=== PATIENT | male | born 1965 | race American Indian/Alaskan Native ===

== ENCOUNTER 2018-10-24 10:53 | Emergency (ER) | payer MEDICAID ==
[2018-10-24 10:59] VITALS: BP 115/83
--- NOTE | 2018-10-24 11:54 | Emergency Department Report ---
ED General Adult HPI - General Chief complaint: Extremity Injury, Upper Stated complaint: LT ARM NUMBNESS Time Seen by Provider: 10/24/18 11:43 Source: patient Mode of arrival: Ambulatory Limitations: No Limitations - History of Present Illness Initial comments: She has a 53-year-old -Mac[place] male who lives in [facility] that comes to the [facility] via EMS with complaints of "right" arm numbness for 1 month. v upon HPI patient told me that he is coming to the ER for left arm numbness and tingling. He also states that he is experiencing some numbness in his left leg. Patient is well dressed, And ambulatory in [facility]. Patient has no focal neuro deficit. He has not having trouble finding words. Short and long- term memory is intact. Vital signs are stable. Blood pressure is 115/83. Past medical history positive for HIV. He follows with Dr. Eldridge who last checked his viral load in November 2017. He is on Truvada and another antiviral that he cannot remember the name of. Patient denies any previous surgeries. He endorses cigarettes alcohol and marijuana. Mother of a stroke. Father of unknown reason patient states that he was in half-way when the father passed so he doesn't know the cause. Patient denies cardiac history, hypertension, hyperlipidemia, previous stroke, previous heart attack. -: Gradual, week(s) - Related Data Allergies Allergy/AdvReac Type Severity Reaction Status Date / Time No Known Allergies Allergy Unverified 10/24/18 10:54 ED Review of Systems ROS: Stated complaint: LT ARM NUMBNESS Other details as noted in HPI Comment: All other systems reviewed and negative ED Past Medical Hx - Past Medical History Hx HIV: Yes - Surgical History Past Surgical History?: No - Family History Family history: other (mom dec cva; dad dec? cause (pt was in longterm when his dad )) - Social History Smoking Status: Current Every Day Smoker Substance Use Type: None, Alcohol, Marijuana ED Physical Exam - General Limitations: No Limitations General appearance: alert, in no apparent distress - Head Head exam: Present: atraumatic, normocephalic - Eye Eye exam: Present: normal appearance, PERRL, EOMI. Absent: scleral icterus, conjunctival injection, nystagmus, periorbital swelling, periorbital tenderness - ENT ENT exam: Present: mucous membranes moist - Neck Neck exam: Present: normal inspection, full ROM. Absent: tenderness - Respiratory Respiratory exam: Present: normal lung sounds bilaterally - Cardiovascular Cardiovascular Exam: Present: regular rate - GI/Abdominal GI/Abdominal exam: Present: soft, normal bowel sounds - Rectal Rectal exam: Present: deferred - exam: Present: normal inspection - Extremities Exam Extremities exam: Present: normal inspection, full ROM, normal capillary refill. Absent: tenderness, pedal edema, joint swelling, calf tenderness - Back Exam Back exam: Present: normal inspection, full ROM - Neurological Exam Neurological exam: Present: alert, oriented X3, CN II-XII intact, normal gait, reflexes normal - Psychiatric Psychiatric exam: Present: normal affect, normal mood - Skin Skin exam: Present: warm, dry, intact, normal color. Absent: rash ED Course Vital Signs 10/24/18 10:58 Temperature 98 F Pulse Rate 84 Respiratory 16 Rate Blood Pressure 115/83 O2 Sat by Pulse 98 Oximetry ED Medical Decision Making - Medical Decision Making Patient is neurologically intact. Patient is ambulatory. He has no weakness on either side. He has no pronator drift. He is ambulatory. Cranial nerves are intact. There is no ptosis. Tongue is midline. He has no trouble finding words or identify objects. He has equal strength upper and lower bilaterally. Vital signs are stable. His blood pressure is 115/83 on no antihypertensives. He is not obese. He has no hypertension or hyperlipidemia history. He's had no previous cardiac or neurological disease. Pt is compliant with his HIV meds. Dr Eldridge is ID Referral today to PCP Discussed with the pt the need for him to have a pcp to follow him over time. Vital Signs 10/24/18 10:58 Temperature 98 F Pulse Rate 84 Respiratory 16 Rate Blood Pressure 115/83 O2 Sat by Pulse 98 Oximetry Critical care attestation.: If time is entered above; I have spent that time in minutes in the direct care of this critically ill patient, excluding procedure time. ED Disposition Clinical Impression: Arm paresthesia, left, HIV (human immunodeficiency virus infection) Disposition: DC-01 TO HOME OR SELFCARE Is pt being admited?: No Does the pt Need Aspirin: No Condition: Stable Additional Instructions: DIET TOLERATED HYDRATE WELL WITH WATER AVOID ALCOHOL OR MARIJUANA AVOID CIG. SMOKING CONTINUE YOUR HOME MEDS FOLLOW UP WITH YOUR HIV MD NAKUL FOR RECHECK FOR IT HAS BEEN ONE YEAR. FOLLOW UP WITH PCP REFERRAL BELOW IF YOU LIVE IN [facility] THE [facility] DOES HAVE PCP DOCTORS OVER THE COUNTER MOTRIN OR TYLENOL FOR PAIN Referrals: [facility] [Outside] - 3-5 Days Time of Disposition: 11:52
== END 2018-10-24 12:29 | disposition home or self-care (01) ==
LOC: ED 10:53
DX: R20.2 Paresthesia of skin (principal); R20.0 Anesthesia of skin; B20 Human immunodeficiency virus [HIV] disease; F17.200 Nicotine dependence, unspecified, uncomplicated; F12.10 Cannabis abuse, uncomplicated

== ENCOUNTER 2018-12-31 11:55 | Emergency (ER) | payer MEDICAID ==
--- NOTE | 2018-12-31 12:11 | Emergency Department Report ---
Blank Doc - Documentation Documentation: This is a 53-year-old male that presents with left leg pain. Denies any injur ies. This initial assessment/diagnostic orders/clinical plan/treatment(s) is/are subject to change based on patient's health status, clinical progression and re- assessment by fellow clinical providers in the ED. Further treatment and workup at subsequent clinical providers discretion. Patient/guardians urged not to elope from the ED as their condition may be serious if not clinically assessed a nd managed. Initial orders include: 1- Patient sent to [facility] for further evaluation and treatment 2- Doppler US
[2018-12-31 12:12] VITALS: BP 123/88
--- NOTE | 2018-12-31 13:35 | Vascular Lab Report ---
PROCEDURE: VL VENOUS DUPLEX LE LT TECHNIQUE: Austin scale, color and pulsed Doppler ultrasound with color flow and spectral analysis eval uation of left lower extremity was performed to assess for deep vein thrombosis. HISTORY: left leg pain COMPARISONS: None currently available. FINDINGS: LEFT extremity: There is normal grayscale appearance and compressibility. Normal phasic pulsed Doppler and normal col or Doppler flow are visualized. The interrogated vessels show normal augmentation. IMPRESSION: * No evidence for DVT. This document is electronically signed by Hasmukh Thompson MD., December 31 2018 01:32:46 PM ET
--- NOTE | 2018-12-31 16:18 | Emergency Department Report ---
ED Extremity Problem HPI - General Chief complaint: Extremity Problem,Nontraumatic Stated complaint: L LEG PAIN Time Seen by Provider: 12/31/18 12:10 Source: patient Mode of arrival: Ambulatory Limitations: No Limitations - History of Present Illness Initial comments: 83-year-old male presents to the emergency room for left leg pain times one month. Patient was seen by Dr. Ceballos and was given a prescription for meloxicam for primary care provider. Patient has a past medical history of HIV. Patient denies any trauma no falls. MD Complaint: extremity pain - Related Data Previous Rx's Medication Instructions Recorded Last Taken Type Meloxicam [Mobic] 15 mg PO QDAY PRN #30 tablet 12/31/18 Unknown Rx Allergies Allergy/AdvReac Type Severity Reaction Status Date / Time No Known Allergies Allergy Unverified 10/24/18 10:54 ED Review of Systems ROS: Stated complaint: L LEG PAIN Other details as noted in HPI Comment: All other systems reviewed and negative ED Past Medical Hx - Past Medical History Previous Medical History?: Yes Hx HIV: Yes - Surgical History Past Surgical History?: No - Social History Smoking Status: Current Every Day Smoker Substance Use Type: None - Medications Home Medications: Home Medications Medication Instructions Recorded Confirmed Last Taken Type Meloxicam [Mobic] 15 mg PO QDAY PRN #30 tablet 12/31/18 Unknown Rx ED Physical Exam - General Limitations: No Limitations General appearance: alert, in no apparent distress - Head Head exam: Present: atraumatic, normocephalic - Eye Eye exam: Present: normal appearance - ENT ENT exam: Present: mucous membranes moist - Expanded Lower Extremity Exam Left Upper Leg exam: Present: full ROM Knee exam: Present: normal inspection, full ROM. Absent: tenderness, swelling Lower Leg exam: Present: full ROM. Absent: tenderness, swelling Neuro vascular tendon exam: Present: no vascular compromise Gait: Positive: observed and normal - Back Exam Back exam: Present: normal inspection - Neurological Exam Neurological exam: Present: alert, oriented X3 - Psychiatric Psychiatric exam: Present: normal affect, normal mood - Skin Skin exam: Present: warm, dry, intact, normal color. Absent: rash ED Course Vital Signs 12/31/18 12:10 Temperature 98.2 F Pulse Rate 75 Respiratory 18 Rate Blood Pressure 123/88 O2 Sat by Pulse 99 Oximetry ED Medical Decision Making - Radiology Data Radiology results: report reviewed Patient: CHUN BRUNO MR#: [id number] : 1965 Acct:[id number] Age/Sex: 53 / M ADM Date: 12/31/18 Loc: ED Attending Dr: Ordering Physician: SEGUNDO CELAYA NP Date of Service: 12/31/18 Procedure(s): VL venous duplex LE LT Accession Number(s): [id number] cc: SEGUNDO CELAYA NP PROCEDURE: VL VENOUS DUPLEX LE LT TECHNIQUE: Austin scale, color and pulsed Doppler ultrasound with color flow and spectral analysis evaluation of left lower extremity was performed to assess for deep vein thrombosis. HISTORY: left leg pain COMPARISONS: None currently available. FINDINGS: LEFT extremity: There is normal grayscale appearance and compressibility. Normal phasic pulsed Doppler and normal color Doppler flow are visualized. The interrogated vessels show normal augmentation. IMPRESSION: * No evidence for DVT. This document is electronically signed by Hasmukh Hardin MD., December 31 2018 01:32:46 PM ET Transcribed By: TYM Dictated By: HASMUKH HARDIN MD Electronically Authenticated By: HASMUKH HARDIN MD Signed Date/Time: 12/31/18 1335 DD/ 1303 TD/TT: 12/31/18 1304 - Medical Decision Making 53-year-old male comes in for 1 month of left leg pain with no injury. Discu ssed the patient will refill his meloxicam and I will not be able to write for narcotics. Discussed the patient he needs to follow back up with his primary care provider which is Dr. Werner. Patient was walking without cane to the bathroom. Critical care attestation.: If time is entered above; I have spent that time in minutes in the direct care of this critically ill patient, excluding procedure time. ED Disposition Clinical Impression: Leg pain, left Disposition: DC-01 TO HOME OR SELFCARE Is pt being admited?: No Does the pt Need Aspirin: No Condition: Stable Instructions: Arthralgia (ED) Additional Instructions: Take pain medication as prescribed. Follow back up with her primary care provider in the next 2-3 days if symptoms persist or gets worse. Ultrasound of her leg was negative for any DVTs or deep vein thrombosis. Prescriptions: Meloxicam [Mobic] 15 mg PO QDAY PRN #30 tablet PRN Reason: Pain , Severe (7-10) Referrals: BETTIE ACKERMAN MD [Staff Physician] - 3-5 Days
== END 2018-12-31 16:26 | disposition home or self-care (01) ==
LOC: ED 11:55
DX: M79.605 Pain in left leg (principal); Z21 Asymptomatic human immunodeficiency virus [HIV] infection status; F17.200 Nicotine dependence, unspecified, uncomplicated

== ENCOUNTER 2019-01-13 10:57 | Emergency (ER) | payer MEDICAID ==
[2019-01-13] MEDS ORDERED: NACL 0.9% 1000 ML 1,000 ML IV ONE (11:32)
[2019-01-13] MEDS ORDERED: ANTIVERT PO ONE (11:32)
--- NOTE | 2019-01-13 11:33 | Emergency Department Report ---
<YVONNE DOMINGO - Last Filed: 01/13/19 15:36> - General Chief complaint: Weakness Stated complaint: GENERAL WEAKNESS Time Seen by Provider: 01/13/19 11:22 Source: patient, EMS, old records reviewed Mode of arrival: Stretcher Limitations: No Limitations - History of Present Illness Initial comments: 53 year old male past medical history of HIV history of alcohol abuse presents to the Hospital complaining of continued left upper leg pain and some dizziness. Patient has had leg pain for greater 1 month of dizziness for a couple days. Patient describes dizziness as the room spinning. Symptoms somewhat worse with movement. Denies blurred vision, nausea, vomiting, focal weakness, focal numbness, or headache. Patient has had a left upper leg thigh/quadrant pain for greater than 1 month. Pain is moderate, sharp, intermittent, worse a palpation and movement. He has been seen here recently for the same complaints. Denies any trauma, rash, or leg edema. Patient has not followed up with his HIV doctor since last year. He just ran out of his HIV medication while month ago. He does not know his last viral load or CD4 count. Patient stop drinking alcohol on his birthday this year. He denies any drug use. - Related Data Previous Rx's Medication Instructions Recorded Last Taken Type Acetaminophen [Acetaminophen 8 650 mg PO Q8HR PRN #20 tablet.er 01/13/19 Unknown Rx Hour] Meclizine [Antivert] 25 mg PO TID PRN #20 tablet 01/13/19 Unknown Rx Nitrofurantoin Parmer/M-Cryst 100 mg PO Q12HR #14 capsule 01/13/19 Unknown Rx [Macrobid CAP] Allergies Allergy/AdvReac Type Severity Reaction Status Date / Time aspirin AdvReac Hives Verified 01/13/19 11:19 diphenhydramine AdvReac Hives Verified 01/13/19 11:19 [From Benadryl] ibuprofen AdvReac Itching Verified 01/13/19 11:19 IVP dye AdvReac Anaphylaxis Uncoded 01/13/19 11:19 ED Review of Systems Comment: All other systems reviewed and negative ED Past Medical Hx - Past Medical History Hx HIV: Yes Additional medical history: Peptic ulcer disease - Social History Smoking Status: Current Every Day Smoker Substance Use Type: None - Medications Home Medications: Home Medications Medication Instructions Recorded Confirmed Last Taken Type Acetaminophen [Acetaminophen 8 650 mg PO Q8HR PRN #20 tablet.er 01/13/19 Unknown Rx Hour] Meclizine [Antivert] 25 mg PO TID PRN #20 tablet 01/13/19 Unknown Rx Nitrofurantoin Parmer/M-Cryst 100 mg PO Q12HR #14 capsule 01/13/19 Unknown Rx [Macrobid CAP] ED Physical Exam - General Limitations: No Limitations - Other Other exam information: General: No limitations, patient is alert in no acute distress Head exam: Atraumatic, normocephalic Eyes exam: Normal appearance, pupils equal reactive to light, extraocular movements intact, patient has nystagmus with right upper directions. ENT: Moist mucous membrane, normal oropharynx Neck exam: Normal inspection, full range of motion, no meningismus nontender Respiratory exam: Clear to auscultation bilateral, no wheezes, rales, crackles Cardiovascular: Normal rate and rhythm, normal heart sounds Abdomen: Soft, nondistended, and nontender, with normal bowel sounds, no rebound, or guarding Extremity: Full range of motion normal inspection no deformity, tenderness to left hamstring and quad area. No rash, warm, or erythema. 2+ DP pulses equal bilaterally. Back: Normal Inspection, full range of motion, no tenderness, [id number] motion intact Neurologic: Alert, oriented x3, cranial nerves intact, no motor or sensory deficit Psychiatric: normal affect, normal mood Skin: Warm, dry, intact ED Medical Decision Making - Lab Data Result diagrams: 01/13/19 11:37 01/13/19 11:37 Lab Results 01/13/19 01/13/19 01/13/19 Range/Units 11:37 11:37 11:37 WBC 4.8 (4.5-11.0) K/mm3 RBC 5.27 H (3.65-5.03) M/mm3 Hgb 16.4 H (11.8-15.2) gm/dl Hct 49.0 H (35.5-45.6) % MCV 93 (84-94) fl MCH 31 (28-32) pg MCHC 33 (32-34) % RDW 13.3 (13.2-15.2) % Plt Count 196 (140-440) K/mm3 Lymph % (Auto) 19.9 (13.4-35.0) % Parmer % (Auto) 13.5 H (0.0-7.3) % Eos % (Auto) 2.5 (0.0-4.3) % Baso % (Auto) 0.4 (0.0-1.8) % Lymph # 1.0 L (1.2-5.4) K/mm3 Parmer # 0.7 (0.0-0.8) K/mm3 Eos # 0.1 (0.0-0.4) K/mm3 Baso # 0.0 (0.0-0.1) K/mm3 Seg Neutrophils % 63.7 (40.0-70.0) % Seg Neutrophils # 3.1 (1.8-7.7) K/mm3 Sodium 136 L (137-145) mmol/L Potassium 4.0 (3.6-5.0) mmol/L Chloride 98.9 (98-107) mmol/L Carbon Dioxide 28 (22-30) mmol/L Anion Gap 13 mmol/L BUN 13 (9-20) mg/dL Creatinine 0.8 (0.8-1.5) mg/dL Estimated GFR > 60 ml/min BUN/Creatinine Ratio 16 % Glucose 140 H (75-100) mg/dL Calcium 8.6 (8.4-10.2) mg/dL Magnesium 2.30 (1.7-2.3) mg/dL Total Bilirubin 0.40 (0.1-1.2) mg/dL AST 21 (5-40) units/L ALT 34 (7-56) units/L Alkaline Phosphatase 57 (35-129) units/L Total Creatine Kinase 70 (55-170) units/L Total Protein 7.9 (6.3-8.2) g/dL Albumin 3.2 L (3.9-5) g/dL Albumin/Globulin Ratio 0.7 % Urine Color (Yellow) Urine Turbidity (Clear) Urine pH (5.0-7.0) Ur Specific [place] (1.003-1.030) Urine Protein (Negative) mg/dL Urine Glucose (UA) (Negative) mg/dL Urine Ketones (Negative) mg/dL Urine Blood (Negative) Urine Nitrite (Negative) Urine Bilirubin (Negative) Urine Urobilinogen (<2.0) mg/dL Ur Leukocyte Esterase (Negative) Urine WBC (Auto) (0.0-6.0) /HPF Urine RBC (Auto) (0.0-6.0) /HPF Urine Bacteria (Auto) (Negative) /HPF Urine Mucus /HPF Urine Yeast (Budding) /HPF Urine Opiates Screen Urine Methadone Screen Ur Barbiturates Screen Ur Phencyclidine Scrn Ur Amphetamines Screen U Benzodiazepines Scrn Urine Cocaine Screen U Marijuana (THC) Screen Drugs of Abuse Note Plasma/Serum Alcohol (0-0.07) % 01/13/19 01/13/19 01/13/19 Range/Units 11:37 Unknown Unknown WBC (4.5-11.0) K/mm3 RBC (3.65-5.03) M/mm3 Hgb (11.8-15.2) gm/dl Hct (35.5-45.6) % MCV (84-94) fl MCH (28-32) pg MCHC (32-34) % RDW (13.2-15.2) % Plt Count (140-440) K/mm3 Lymph % (Auto) (13.4-35.0) % Parmer % (Auto) (0.0-7.3) % Eos % (Auto) (0.0-4.3) % Baso % (Auto) (0.0-1.8) % Lymph # (1.2-5.4) K/mm3 Parmer # (0.0-0.8) K/mm3 Eos # (0.0-0.4) K/mm3 Baso # (0.0-0.1) K/mm3 Seg Neutrophils % (40.0-70.0) % Seg Neutrophils # (1.8-7.7) K/mm3 Sodium (137-145) mmol/L Potassium (3.6-5.0) mmol/L Chloride (98-107) mmol/L Carbon Dioxide (22-30) mmol/L Anion Gap mmol/L BUN (9-20) mg/dL Creatinine (0.8-1.5) mg/dL Estimated GFR ml/min BUN/Creatinine Ratio % Glucose (75-100) mg/dL Calcium (8.4-10.2) mg/dL Magnesium (1.7-2.3) mg/dL Total Bilirubin (0.1-1.2) mg/dL AST (5-40) units/L ALT (7-56) units/L Alkaline Phosphatase (35-129) units/L Total Creatine Kinase (55-170) units/L Total Protein (6.3-8.2) g/dL Albumin (3.9-5) g/dL Albumin/Globulin Ratio % Urine Color Yellow (Yellow) Urine Turbidity Slightly-cloudy (Clear) Urine pH 6.0 (5.0-7.0) Ur Specific [place] 1.004 (1.003-1.030) Urine Protein <15 mg/dl (Negative) mg/dL Urine Glucose (UA) Neg (Negative) mg/dL Urine Ketones Neg (Negative) mg/dL Urine Blood Sm (Negative) Urine Nitrite Neg (Negative) Urine Bilirubin Neg (Negative) Urine Urobilinogen 2.0 (<2.0) mg/dL Ur Leukocyte Esterase Lg (Negative) Urine WBC (Auto) 71.0 H (0.0-6.0) /HPF Urine RBC (Auto) 2.0 (0.0-6.0) /HPF Urine Bacteria (Auto) 4+ (Negative) /HPF Urine Mucus Few /HPF Urine Yeast (Budding) 1+ /HPF Urine Opiates Screen Presumptive negative Urine Methadone Screen Presumptive negative Ur Barbiturates Screen Presumptive negative Ur Phencyclidine Scrn Presumptive negative Ur Amphetamines Screen Presumptive negative U Benzodiazepines Scrn Presumptive negative Urine Cocaine Screen Presumptive positive U Marijuana (THC) Screen Presumptive negative Drugs of Abuse Note Disclamer Plasma/Serum Alcohol < 0.01 (0-0.07) % - EKG Data -: EKG Interpreted by Ak EKG shows normal: sinus rhythm, axis (qrs -26), QRS complexes (qrsd 90), ST-T waves (no stemi) Rate: bradycardia (57) - Medical Decision Making Patient did receive meclizine in the ED for possible vertigo + uti, macrobid given uds + for cocaine no signs of rhabdo or sepsis pt will be d/jeremie wtih meds pmd and ID f/u encouraged just prior to d/c his significant other now at the bedside and states that he has had unsteady gait and frequent falls for last 2 weeks. He also has periods of crossed eyes. Patient had good 5/5 strength of upper and lower extremity while in the bed. CT head performed. Walker will be prescribed. Once again I stressed outpatient follow-up given that he chronic medical conditions that are currently being treated due to his lack of follow-up. Patiently lists almost every pain medication class as an "allergy" He states that he can't take ibuprofen due to history of bleeding stomach ulcer. It appears that most of his allergies listed are actually adverse reactions and not true allergies. He states he can't take tramadol because it tears up his stomach and he gets nausea and vomiting. He can't take aspirin due to peptic ulcer disease. It does not appear to have patient has a Tylenol allergy. Given patient's positive cocaine drug screen and history of alcohol abuse I am hesitant to give a narcotic for pain due to risk of potential abuse especially given that patient's pain appears to be chronic. Tylenol will be recommended for pain. Instructed to discontinue Mobic since it is a NSAID and has sustained risk of GI upset/bleeding and people with a history of peptic ulcer disease. - Differential Diagnosis rhabdomyolysis, muscle strain, myopathy, infection, vertigo Critical Care Time: No ED Disposition Clinical Impression: Leg pain, left, UTI (urinary tract infection), Vertigo Disposition: DC-01 TO HOME OR SELFCARE Is pt being admited?: No Does the pt Need Aspirin: No Condition: Stable Instructions: Urinary Tract Infection in Men (ED), Vertigo (ED), Cocaine Abuse (ED), Arthralgia (ED) Additional Instructions: Take the medication as prescribed. Follow up with your doctor or the clinic/doctor provided. Return if symptoms worsen as indicated by your discharge instructions Prescriptions: Acetaminophen [Acetaminophen 8 Hour] 650 mg PO Q8HR PRN #20 tablet.er PRN Reason: Pain , Severe (7-10) Meclizine [Antivert] 25 mg PO TID PRN #20 tablet PRN Reason: Vertigo Nitrofurantoin Parmer/M-Cryst [Macrobid CAP] 100 mg PO Q12HR #14 capsule Referrals: GABINO DANG MD [Primary Care Provider] - 3-5 Days [facility] [Provider Group] - 3-5 Days Time of Disposition: 14:28 <MICHAEL GHOSH - Last Filed: 01/13/19 17:03> ED Review of Systems ROS: Stated complaint: GENERAL WEAKNESS Other details as noted in HPI ED Course Vital Signs 01/13/19 01/13/19 01/13/19 11:13 11:34 14:03 Temperature 97.6 F 97.6 F Pulse Rate 70 85 76 Respiratory 18 18 18 Rate Blood Pressure 133/85 Blood Pressure 135/85 125/86 [Right] O2 Sat by Pulse 98 96 Oximetry ED Medical Decision Making - Lab Data Result diagrams: 01/13/19 11:37 01/13/19 11:37 - Radiology Data [facility] [address] [place] [address] Cat Scan Report Signed Patient: CHUN BRUNO MR#: [id number] : 1965 Acct:[id number] Age/Sex: 53 / M ADM Date: 01/13/19 Loc: ED Attending Dr: Ordering Physician: YVONNE DOMINGO MD Date of Service: 01/13/19 Procedure(s): CT head/brain wo con Accession Number(s): [id number] cc: YVONNE DOMINGO MD PROCEDURE: CT HEAD/BRAIN WO CON TECHNIQUE: A noncontrast CT of the head was performed. HISTORY: unsteady gait COMPARISON: None FINDINGS: There are multiple hypodensities in the anya which are likely multiple old lacunar infarcts. The largest is left of midline measuring 1 cm. There is no acute intracranial hemorrhage. There is no brain edema, mass effect or midline shift. Ventricular size is appropriate for brain volume. There is no abnormal extra- axial fluid collections. There is no skull fracture seen. The visualized paranasal sinuses are clear. 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 No acute abnormality seen. This document is electronically signed by Rosario Caal MD., January 13 2019 03:54:05 PM ET Transcribed By: EKTA Dictated By: ROSARIO CAAL MD Electronically Authenticated By: ROSARIO CAAL MD Signed Date/Time: 01/13/19 4306 DD/ 150 Critical care attestation.: If time is entered above; I have spent that time in minutes in the direct care of this critically ill patient, excluding procedure time.
[2019-01-13 12:09] LABS: Alanine Aminotransferase 34 units/L (7-56); Albumin 3.2 g/dL (3.9-5); BUN/Creatinine Ratio 16; Blood Urea Nitrogen 13 mg/dL (9-20); Calcium 8.6 mg/dL (8.4-10.2); Hemolysis Index 8
[2019-01-13 12:10] LABS: Basophils % (Auto) 0.4 % (0.0-1.8); Eosinophils # (Auto) 0.1 K/mm3 (0.0-0.4); Eosinophils % (Auto) 2.5 % (0.0-4.3); Hemoglobin 16.4 gm/dl (11.8-15.2); Lymphocytes % (Auto) 19.9 % (13.4-35.0); Mean Corpuscular HGB Conc 33 % (32-34); Mean Corpuscular Volume 93 fl (84-94); Monocytes # (Auto) 0.7 K/mm3 (0.0-0.8); Monocytes % (Auto) 13.5 % (0.0-7.3); Platelet Count 196 K/mm3 (140-440); Red Blood Count 5.27 M/mm3 (3.65-5.03); Red Cell Distribution Width 13.3 % (13.2-15.2)
[2019-01-13 13:34] LABS: Bacteria,Urine 4+ /HPF (Negative); Bilirubin,Urine NEG (Negative); Blood,Urine SM (Negative); Color,Urine Yellow (Yellow); Mucus,Urine FEW /HPF; Protein,Urine <15 mg/dL mg/dL (Negative)
[2019-01-13 13:39] LABS: Amphetamine Screen,Urine PRESUMPTIVE NEGATIVE; Benzodiazepines Screen,Urine PRESUMPTIVE NEGATIVE; Cannabinoid Screen,Urine PRESUMPTIVE NEGATIVE; Methadone Screen,Urine PRESUMPTIVE NEGATIVE; Opiate Screen,Urine PRESUMPTIVE NEGATIVE
[2019-01-13] MEDS ORDERED: MACROBID PO ONE (13:53)
[2019-01-13 14:00] LABS: Cocaine Screen,Urine PRESUMPTIVE POSITIVE
[2019-01-13] MEDS ORDERED: TYLENOL PO ONE (15:36)
--- NOTE | 2019-01-13 15:56 | Cat Scan Report ---
PROCEDURE: CT HEAD/BRAIN WO CON TECHNIQUE: A noncontrast CT of the head was performed. HISTORY: unsteady gait COMPARISON: None FINDINGS: There are multiple hypodensities in the anya which are likely multiple old lacunar infarcts. The larg est is left of midline measuring 1 cm. There is no acute intracranial hemorrhage. There is no brain edema, mass effect or midline shift. Ventricular size is appropriate for brain volume. There is no abnormal extra-axial fluid collections. There is no skull fracture seen. The visualized paranasal sinuses are clear. 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 No acute abnormality seen. This document is electronically signed by Rosario Caal MD., January 13 2019 03:54:05 PM ET
[2019-01-13 17:34] VITALS: BP 135/85
== END 2019-01-13 17:32 | disposition home or self-care (01) ==
LOC: ED 10:57
DX: M79.605 Pain in left leg (principal); R42 Dizziness and giddiness; N39.0 Urinary tract infection, site not specified; F17.200 Nicotine dependence, unspecified, uncomplicated; Z88.6 Allergy status to analgesic agent; Z88.8 Allergy status to other drugs, medicaments and biological substances; Z91.041 Radiographic dye allergy status; Z87.11 Personal history of peptic ulcer disease
CPT/HCPCS: 36415; 70450; 80053; 80307; 81001; 82550; 83735; 85025; 87076; 87086; 87186; 93005; 93010; 96360; 96361; 99284; G0480; J7030; 80320

== ENCOUNTER 2019-07-29 15:09 | Emergency (ER) | payer MEDICAID ==
--- NOTE | 2019-07-29 17:57 | Emergency Department Report ---
Blank Doc - Documentation Documentation: 53-year-old male that presents with difficulty walking and generlized weakness x1 month. This initial assessment/diagnostic orders/clinical plan/treatment(s) is/are subject to change based on patient's health status, clinical progression and re- assessment by fellow clinical providers in the ED. Further treatment and workup at subsequent clinical providers discretion. Patient/guardians urged not to elope from the ED as their condition may be serious if not clinically assessed and managed. Initial orders include: 1- Patient sent to MAIN ED for further evaluation and treatment 2- labs 3- UA 4- CT head
[2019-07-29 18:19] LABS: Eosinophils # (Auto) 0.3 K/mm3 (0.0-0.4); Eosinophils % (Auto) 6.5 % (0.0-4.3); Hematocrit 48.5 % (35.5-45.6); Lymphocytes # (Auto) 2.1 K/mm3 (1.2-5.4); Lymphocytes % (Auto) 44.7 % (13.4-35.0); Mean Corpuscular HGB Conc 33 % (32-34); Mean Corpuscular Volume 91 fl (84-94); Monocytes # (Auto) 0.4 K/mm3 (0.0-0.8); Monocytes % (Auto) 9.5 % (0.0-7.3); Platelet Count 164 K/mm3 (140-440); Red Blood Count 5.31 M/mm3 (3.65-5.03); Red Cell Distribution Width 13.3 % (13.2-15.2)
[2019-07-29 18:41] LABS: Creatine Kinase MB 3.1 ng/mL (0.0-4.0)
[2019-07-29 18:44] LABS: Alanine Aminotransferase 51 units/L (7-56); Albumin 3.7 g/dL (3.9-5); BUN/Creatinine Ratio 19; Blood Urea Nitrogen 13 mg/dL (9-20); Calcium 8.7 mg/dL (8.4-10.2); Hemolysis Index 24
[2019-07-29 19:04] LABS: INR 1.01 (0.87-1.13); Partial Thromboplastin Time 33.7 Sec. (24.2-36.6); Thrombin Time 19.3 Sec. (15.1-19.6)
--- NOTE | 2019-07-29 19:21 | Emergency Department Report ---
ED General Adult HPI - General Chief complaint: Weakness Stated complaint: CANT WALK Time Seen by Provider: 07/29/19 17:55 Source: patient Mode of arrival: Wheelchair Limitations: No Limitations - History of Present Illness Initial comments: 53 y.o. male with a history of HIV and alcohol abuse presents complaining of generalized weakness. Patient states that he has had generalized weakness for the past month. Patient states that he has seen his primary care doctor on July 23 and he ordered outpatient testing for him. Patient has had no focal weakness. Patient's family member states that the patient needs assistance with walking and has been using a cane at home. The patient family states the patient has had more frequent falls. Patient denies any chest pain but complains of pain in his left lower extremity. - Related Data Previous Rx's Medication Instructions Recorded Last Taken Type Acetaminophen [Acetaminophen 8 650 mg PO Q8HR PRN #20 tablet.er 01/13/19 Unknown Rx Hour] Meclizine [Antivert] 25 mg PO TID PRN #20 tablet 01/13/19 Unknown Rx Nitrofurantoin Stearns/M-Cryst 100 mg PO Q12HR #14 capsule 01/13/19 Unknown Rx [Macrobid CAP] Allergies Allergy/AdvReac Type Severity Reaction Status Date / Time aspirin AdvReac Hives Verified 07/29/19 15:16 diphenhydramine AdvReac Hives Verified 07/29/19 15:16 [From Benadryl] ibuprofen AdvReac Itching Verified 07/29/19 15:16 IVP dye AdvReac Anaphylaxis Uncoded 01/13/19 11:19 ED Review of Systems ROS: Stated complaint: CANT WALK Other details as noted in HPI Constitutional: denies: chills, fever Eyes: denies: eye pain, eye discharge, vision change ENT: denies: ear pain, throat pain Respiratory: denies: cough, shortness of breath, wheezing Cardiovascular: denies: chest pain, palpitations Endocrine: no symptoms reported Gastrointestinal: denies: abdominal pain, nausea, diarrhea Genitourinary: denies: urgency, dysuria Musculoskeletal: denies: back pain, joint swelling, arthralgia Skin: denies: rash, lesions Neurological: weakness Psychiatric: denies: anxiety, depression Hematological/Lymphatic: denies: easy bleeding, easy bruising ED Past Medical Hx - Past Medical History Previous Medical History?: Yes Hx HIV: Yes Additional medical history: Peptic ulcer disease - Social History Smoking Status: Current Every Day Smoker Substance Use Type: Alcohol - Medications Home Medications: Home Medications Medication Instructions Recorded Confirmed Last Taken Type Acetaminophen [Acetaminophen 8 650 mg PO Q8HR PRN #20 tablet.er 01/13/19 Unknown Rx Hour] Meclizine [Antivert] 25 mg PO TID PRN #20 tablet 01/13/19 Unknown Rx Nitrofurantoin Stearns/M-Cryst 100 mg PO Q12HR #14 capsule 01/13/19 Unknown Rx [Macrobid CAP] ED Physical Exam - General Limitations: No Limitations General appearance: alert, other (yelling; awake) - Head Head exam: Present: atraumatic, normocephalic - Eye Eye exam: Present: normal appearance - ENT ENT exam: Present: mucous membranes moist - Neck Neck exam: Present: normal inspection - Respiratory Respiratory exam: Present: normal lung sounds bilaterally. Absent: respiratory distress - Cardiovascular Cardiovascular Exam: Present: regular rate, normal rhythm. Absent: systolic murmur, diastolic murmur, rubs, gallop - GI/Abdominal GI/Abdominal exam: Present: soft, normal bowel sounds - Rectal Rectal exam: Present: deferred - Extremities Exam Extremities exam: Present: normal inspection - Back Exam Back exam: Present: normal inspection - Neurological Exam Neurological exam: Present: alert, oriented X3, CN II-XII intact, other (strength 5/5 bilaterally in upper and lower extermities). Absent: motor sensory deficit - Psychiatric Psychiatric exam: Present: normal affect, normal mood - Skin Skin exam: Present: warm, dry, intact, normal color. Absent: rash ED Course Vital Signs 07/29/19 07/29/19 17:55 19:21 Temperature 97.9 F Pulse Rate 68 Respiratory 20 20 Rate Blood Pressure 142/97 O2 Sat by Pulse 98 Oximetry ED Medical Decision Making - Lab Data Result diagrams: 07/29/19 18:03 07/29/19 18:03 - Medical Decision Making Patient has a CT which shows no acute intracranial pathology. Patient able to move extremities. Patient made aware of positive drug screen and need to follow up with primary care doctor later this month at his scheduled appointment. - Differential Diagnosis Dehdyration; Intracranial Bleed; Anemia; Polysubstance Abuse Critical care attestation.: If time is entered above; I have spent that time in minutes in the direct care of this critically ill patient, excluding procedure time. ED Disposition Clinical Impression: Weakness, Cocaine abuse Disposition: DC-01 TO HOME OR SELFCARE Is pt being admited?: No Condition: Stable Instructions: Weakness (ED) Referrals: PRIMARY CARE, [Primary Care Provider] - 3-5 Days Time of Disposition: 20:21 Print Language: NAURUAN
--- NOTE | 2019-07-29 19:33 | Cat Scan Report ---
NONENHANCED CT SCAN OF THE HEAD: INDICATION / CLINICAL INFORMATION: 53 years Male; Stroke symptoms. TECHNIQUE: Routine CT head without contrast. All CT scans at this location are performed using CT dos e reduction for ALARA by means of automated exposure control. COMPARISON: CT scan of the brain from 01/13/2019 FINDINGS: BRAIN / INTRACRANIAL CONTENTS: No intracerebral hemorrhage or stroke mimics. No acute hemorrhage, mass effect, midline shift, hydrocephalus, or acute, large territorial infarct. As seen in the last CT scan, chronic ischemic lesions are seen in the anya bilaterally. Volume loss i s seen in the cerebellar hemispheres. Chronic lacunae are seen in the left thalamus and right interna l capsule posterior limb. These 2 are new since the last CT scan. Periventricular and deep hemispheri c white matter are normal. Focal calcific density is seen in the foramina of [place] without obstruction. This appears to be choro id plexus calcification. CRANIOCERVICAL JUNCTION: No significant abnormality. ORBITS: No significant abnormality of visualized orbits. SINUSES / MASTOIDS: No significant abnormality of the visualized paranasal sinuses or mastoid air hussein ls. ADDITIONAL FINDINGS: The nasal bone fractures are seen bilaterally. IMPRESSION: Intracerebral hemorrhage or stroke mimics As seen in the last CT scan, chronic ischemic lesions in the anya Since the last CT scan, chronic lacunae in the left thalamus and right basal ganglia Signer Name: Vielka Noland MD Signed: 07/29/2019 7:29 PM Workstation Name: [id number]
[2019-07-29] MEDS ORDERED: HYDROcodone/ACETAMINOPHEN 10-325MG TAB PO ONE (19:34)
[2019-07-29 19:41] LABS: Bacteria,Urine 1+ /HPF (Negative); Bilirubin,Urine NEG (Negative); Blood,Urine NEG (Negative); Color,Urine Yellow (Yellow); Mucus,Urine FEW /HPF; Protein,Urine <15 mg/dL mg/dL (Negative)
[2019-07-29 19:45] LABS: Amphetamine Screen,Urine PRESUMPTIVE NEGATIVE; Benzodiazepines Screen,Urine PRESUMPTIVE NEGATIVE; Methadone Screen,Urine PRESUMPTIVE NEGATIVE; Opiate Screen,Urine PRESUMPTIVE NEGATIVE
[2019-07-29 20:00] LABS: Cannabinoid Screen,Urine PRESUMPTIVE POSITIVE; Cocaine Screen,Urine PRESUMPTIVE POSITIVE
[2019-07-29 20:37] VITALS: BP 109/94
== END 2019-07-29 20:35 | disposition home or self-care (01) ==
LOC: ED 15:09
DX: R53.1 Weakness (principal); F14.10 Cocaine abuse, uncomplicated; F17.200 Nicotine dependence, unspecified, uncomplicated; F10.10 Alcohol abuse, uncomplicated; Z21 Asymptomatic human immunodeficiency virus [HIV] infection status; Z79.899 Other long term (current) drug therapy; Z88.8 Allergy status to other drugs, medicaments and biological substances
CPT/HCPCS: 36415; 70450; 80053; 80307; 80320; 81001; 82550; 82553; 84484; 85025; 85610; 85670; 85730; G0480

== ENCOUNTER 2019-09-11 14:54 | Emergency (ER) | payer MEDICAID ==
--- NOTE | 2019-09-11 15:53 | Emergency Department Report ---
ED General Adult HPI - General Chief complaint: Weakness Stated complaint: POSS CVA Time Seen by Provider: 09/11/19 15:42 Source: EMS Mode of arrival: Stretcher Limitations: No Limitations - History of Present Illness Initial comments: Patient presents to the emergency department with a chief complaint of left leg weakness and pain, left arm tingling, left face pain, and blurred vision x2 years. Patient states he came to emergency department today to try to figure out was been going on for the last 2 years. Patient states he was previously homeless. Patient denies any recent trauma. Patient denies slurred speech, facial droop, difficulty swallowing. -: Gradual, year(s) (2) Severity scale (0 -10): 6 Quality: aching Consistency: intermittent Improves with: rest Worsens with: movement Associated Symptoms: denies other symptoms Treatments Prior to Arrival: none - Related Data Previous Rx's Medication Instructions Recorded Last Taken Type Acetaminophen [Acetaminophen 8 650 mg PO Q8HR PRN #20 tablet.er 01/13/19 Unknown Rx Hour] Meclizine [Antivert] 25 mg PO TID PRN #20 tablet 01/13/19 Unknown Rx Nitrofurantoin Smyth/M-Cryst 100 mg PO Q12HR #14 capsule 01/13/19 Unknown Rx [Macrobid CAP] Allergies Allergy/AdvReac Type Severity Reaction Status Date / Time aspirin AdvReac Hives Verified 07/29/19 15:16 diphenhydramine AdvReac Hives Verified 07/29/19 15:16 [From Benadryl] ibuprofen AdvReac Itching Verified 07/29/19 15:16 IVP dye AdvReac Anaphylaxis Uncoded 01/13/19 11:19 ED Review of Systems ROS: Stated complaint: POSS CVA Other details as noted in HPI Comment: All other systems reviewed and negative Constitutional: denies: chills, fever Eyes: denies: eye pain, eye discharge, vision change ENT: denies: ear pain, throat pain Respiratory: denies: cough, shortness of breath, wheezing Cardiovascular: denies: chest pain, palpitations Endocrine: no symptoms reported Gastrointestinal: denies: abdominal pain, nausea, diarrhea Genitourinary: denies: urgency, dysuria Musculoskeletal: denies: back pain, joint swelling, arthralgia Skin: denies: rash, lesions Neurological: denies: headache, weakness, paresthesias Psychiatric: denies: anxiety, depression Hematological/Lymphatic: denies: easy bleeding, easy bruising ED Past Medical Hx - Past Medical History Previous Medical History?: Yes Hx HIV: Yes Additional medical history: Peptic ulcer disease - Surgical History Past Surgical History?: No - Social History Smoking Status: Current Every Day Smoker Substance Use Type: None - Medications Home Medications: Home Medications Medication Instructions Recorded Confirmed Last Taken Type Acetaminophen [Acetaminophen 8 650 mg PO Q8HR PRN #20 tablet.er 01/13/19 Unknown Rx Hour] Meclizine [Antivert] 25 mg PO TID PRN #20 tablet 01/13/19 Unknown Rx Nitrofurantoin Smyth/M-Cryst 100 mg PO Q12HR #14 capsule 01/13/19 Unknown Rx [Macrobid CAP] ED Physical Exam - General Limitations: No Limitations General appearance: alert, in no apparent distress - Head Head exam: Present: atraumatic, normocephalic - Eye Eye exam: Present: normal appearance, PERRL, EOMI - ENT ENT exam: Present: mucous membranes moist - Neck Neck exam: Present: normal inspection - Respiratory Respiratory exam: Present: normal lung sounds bilaterally. Absent: respiratory distress - Cardiovascular Cardiovascular Exam: Present: regular rate, normal rhythm. Absent: systolic murmur, diastolic murmur, rubs, gallop - GI/Abdominal GI/Abdominal exam: Present: soft, normal bowel sounds. Absent: distended, tend erness - Rectal Rectal exam: Present: deferred - Extremities Exam Extremities exam: Present: normal inspection - Back Exam Back exam: Present: normal inspection - Neurological Exam Neurological exam: Present: alert, oriented X3, CN II-XII intact. Absent: motor sensory deficit - Psychiatric Psychiatric exam: Present: normal affect, normal mood - Skin Skin exam: Present: warm, dry, intact, normal color. Absent: rash ED Course Vital Signs 09/11/19 09/11/19 09/11/19 15:07 15:34 15:46 Pulse Rate 79 74 78 Respiratory 17 11 L 12 Rate Blood Pressure 127/80 127/80 Blood Pressure [Left] O2 Sat by Pulse 98 71 L Oximetry 09/11/19 09/11/19 09/11/19 16:00 17:37 17:39 Pulse Rate 70 66 65 Respiratory 24 21 21 Rate Blood Pressure 127/80 126/83 Blood Pressure 126/83 [Left] O2 Sat by Pulse 97 98 98 Oximetry 09/11/19 09/11/19 09/11/19 17:45 18:00 18:15 Pulse Rate 63 76 67 Respiratory 16 21 12 Rate Blood Pressure 122/81 122/81 125/83 Blood Pressure [Left] O2 Sat by Pulse 99 98 99 Oximetry 09/11/19 09/11/19 09/11/19 18:30 18:45 19:00 Pulse Rate 63 71 73 Respiratory 22 15 15 Rate Blood Pressure 125/83 131/93 127/80 Blood Pressure [Left] O2 Sat by Pulse 99 99 99 Oximetry 09/11/19 19:15 Pulse Rate 73 Respiratory 24 Rate Blood Pressure 144/89 Blood Pressure [Left] O2 Sat by Pulse 100 Oximetry ED Medical Decision Making - Lab Data Result diagrams: 09/11/19 15:53 09/11/19 15:53 Lab Results 09/11/19 09/11/19 09/11/19 Range/Units 15:53 15:53 Unknown WBC 4.0 L (4.5-11.0) K/mm3 RBC 5.04 H (3.65-5.03) M/mm3 Hgb 15.2 (11.8-15.2) gm/dl Hct 45.6 (35.5-45.6) % MCV 90 (84-94) fl MCH 30 (28-32) pg MCHC 33 (32-34) % RDW 13.9 (13.2-15.2) % Plt Count 168 (140-440) K/mm3 Lymph % (Auto) 30.5 (13.4-35.0) % Smyth % (Auto) 6.4 (0.0-7.3) % Eos % (Auto) 1.4 (0.0-4.3) % Baso % (Auto) 0.7 (0.0-1.8) % Lymph # 1.2 (1.2-5.4) K/mm3 Smyth # 0.3 (0.0-0.8) K/mm3 Eos # 0.1 (0.0-0.4) K/mm3 Baso # 0.0 (0.0-0.1) K/mm3 Seg Neutrophils % 61.0 (40.0-70.0) % Seg Neutrophils # 2.5 (1.8-7.7) K/mm3 Sodium 139 (137-145) mmol/L Potassium 4.1 (3.6-5.0) mmol/L Chloride 103.8 (98-107) mmol/L Carbon Dioxide 21 L (22-30) mmol/L Anion Gap 18 mmol/L BUN 8 L (9-20) mg/dL Creatinine 0.7 L (0.8-1.5) mg/dL Estimated GFR > 60 ml/min BUN/Creatinine Ratio 11 % Glucose 92 (75-100) mg/dL Calcium 8.8 (8.4-10.2) mg/dL Total Bilirubin 0.50 (0.1-1.2) mg/dL AST 35 (5-40) units/L ALT 69 H (7-56) units/L Alkaline Phosphatase 59 (35-129) units/L Total Protein 8.1 (6.3-8.2) g/dL Albumin 3.9 (3.9-5) g/dL Albumin/Globulin Ratio 0.9 % Urine Color Straw (Yellow) Urine Turbidity Clear (Clear) Urine pH 8.0 H (5.0-7.0) Ur Specific [place] 1.003 (1.003-1.030) Urine Protein <15 mg/dl (Negative) mg/dL Urine Glucose (UA) Neg (Negative) mg/dL Urine Ketones Neg (Negative) mg/dL Urine Blood Neg (Negative) Urine Nitrite Neg (Negative) Urine Bilirubin Neg (Negative) Urine Urobilinogen < 2.0 (<2.0) mg/dL Ur Leukocyte Esterase Neg (Negative) Urine WBC (Auto) < 1.0 (0.0-6.0) /HPF Urine RBC (Auto) 1.0 (0.0-6.0) /HPF Urine Bacteria (Auto) 1+ (Negative) /HPF Urine Opiates Screen Urine Methadone Screen Ur Barbiturates Screen Ur Phencyclidine Scrn Ur Amphetamines Screen U Benzodiazepines Scrn Urine Cocaine Screen U Marijuana (THC) Screen Drugs of Abuse Note 09/11/19 Range/Units Unknown WBC (4.5-11.0) K/mm3 RBC (3.65-5.03) M/mm3 Hgb (11.8-15.2) gm/dl Hct (35.5-45.6) % MCV (84-94) fl MCH (28-32) pg MCHC (32-34) % RDW (13.2-15.2) % Plt Count (140-440) K/mm3 Lymph % (Auto) (13.4-35.0) % Smyth % (Auto) (0.0-7.3) % Eos % (Auto) (0.0-4.3) % Baso % (Auto) (0.0-1.8) % Lymph # (1.2-5.4) K/mm3 Smyth # (0.0-0.8) K/mm3 Eos # (0.0-0.4) K/mm3 Baso # (0.0-0.1) K/mm3 Seg Neutrophils % (40.0-70.0) % Seg Neutrophils # (1.8-7.7) K/mm3 Sodium (137-145) mmol/L Potassium (3.6-5.0) mmol/L Chloride (98-107) mmol/L Carbon Dioxide (22-30) mmol/L Anion Gap mmol/L BUN (9-20) mg/dL Creatinine (0.8-1.5) mg/dL Estimated GFR ml/min BUN/Creatinine Ratio % Glucose (75-100) mg/dL Calcium (8.4-10.2) mg/dL Total Bilirubin (0.1-1.2) mg/dL AST (5-40) units/L ALT (7-56) units/L Alkaline Phosphatase (35-129) units/L Total Protein (6.3-8.2) g/dL Albumin (3.9-5) g/dL Albumin/Globulin Ratio % Urine Color (Yellow) Urine Turbidity (Clear) Urine pH (5.0-7.0) Ur Specific [place] (1.003-1.030) Urine Protein (Negative) mg/dL Urine Glucose (UA) (Negative) mg/dL Urine Ketones (Negative) mg/dL Urine Blood (Negative) Urine Nitrite (Negative) Urine Bilirubin (Negative) Urine Urobilinogen (<2.0) mg/dL Ur Leukocyte Esterase (Negative) Urine WBC (Auto) (0.0-6.0) /HPF Urine RBC (Auto) (0.0-6.0) /HPF Urine Bacteria (Auto) (Negative) /HPF Urine Opiates Screen Presumptive negative Urine Methadone Screen Presumptive negative Ur Barbiturates Screen Presumptive negative Ur Phencyclidine Scrn Presumptive negative Ur Amphetamines Screen Presumptive negative U Benzodiazepines Scrn Presumptive negative Urine Cocaine Screen Presumptive positive U Marijuana (THC) Screen Presumptive negative Drugs of Abuse Note Disclamer - Radiology Data Radiology results: report reviewed - Medical Decision Making Results discussed with patient Critical care attestation.: If time is entered above; I have spent that time in minutes in the direct care of this critically ill patient, excluding procedure time. 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 Disposition: DC-01 TO HOME OR SELFCARE Is pt being admited?: No Does the pt Need Aspirin: No Condition: Stable Instructions: Cervical Radiculopathy (ED), Cocaine Abuse (ED), Osteoarthritis (ED) Additional Instructions: As discussed you have suffered ischemic events to the brain in the past(stroke) and should be taking daily aspirin Also as discussed she should stop partaking in the use of cocaine As discussed the tingling in your left arm is secondary to arthritis in your neck Please return if worse Referrals: PRIMARY CARE,MD [Primary Care Provider] - 3-5 Days [facility] [Provider Group] - 3-5 Days [facility] [Provider Group] - 3-5 Days
[2019-09-11 16:30] LABS: Basophils % (Auto) 0.7 % (0.0-1.8); Eosinophils # (Auto) 0.1 K/mm3 (0.0-0.4); Eosinophils % (Auto) 1.4 % (0.0-4.3); Hematocrit 45.6 % (35.5-45.6); Hemoglobin 15.2 gm/dl (11.8-15.2); Lymphocytes # (Auto) 1.2 K/mm3 (1.2-5.4); Lymphocytes % (Auto) 30.5 % (13.4-35.0); Mean Corpuscular HGB Conc 33 % (32-34); Mean Corpuscular Volume 90 fl (84-94); Monocytes # (Auto) 0.3 K/mm3 (0.0-0.8); Monocytes % (Auto) 6.4 % (0.0-7.3); Platelet Count 168 K/mm3 (140-440); Red Blood Count 5.04 M/mm3 (3.65-5.03); Red Cell Distribution Width 13.9 % (13.2-15.2)
[2019-09-11 16:33] LABS: Bacteria,Urine 1+ /HPF (Negative); Bilirubin,Urine NEG (Negative); Blood,Urine NEG (Negative); Color,Urine Straw (Yellow); Protein,Urine <15 mg/dL mg/dL (Negative); Urobilinogen,Urine < 2.0 mg/dL (<2.0); WBC,Urine < 1.0 /HPF (0.0-6.0)
[2019-09-11 16:41] LABS: Amphetamine Screen,Urine PRESUMPTIVE NEGATIVE; Benzodiazepines Screen,Urine PRESUMPTIVE NEGATIVE; Cannabinoid Screen,Urine PRESUMPTIVE NEGATIVE; Methadone Screen,Urine PRESUMPTIVE NEGATIVE; Opiate Screen,Urine PRESUMPTIVE NEGATIVE
[2019-09-11 16:42] LABS: Alanine Aminotransferase 69 units/L (7-56); Albumin 3.9 g/dL (3.9-5); BUN/Creatinine Ratio 11; Blood Urea Nitrogen 8 mg/dL (9-20); Calcium 8.8 mg/dL (8.4-10.2); Hemolysis Index 4
--- NOTE | 2019-09-11 16:42 | XRay Report ---
CERVICAL SPINE 3 VIEWS INDICATION / CLINICAL INFORMATION: radiculopathy COMPARISON: None available. FINDINGS: BONES / JOINT(S): No acute fracture or subluxation. Moderate DDD C2-C6. Bony fusion C6-C7. SOFT TISSUES: No significant abnormality. ADDITIONAL FINDINGS: None. Signer Name: Melo Hermosillo MD Signed: 09/11/2019 4:38 PM Workstation Name: [id number]
[2019-09-11 16:54] LABS: Cocaine Screen,Urine PRESUMPTIVE POSITIVE
--- NOTE | 2019-09-11 18:30 | Cat Scan Report ---
CT HEAD WITHOUT CONTRAST HISTORY: left leg weakness COMPARISON: July 29, 2019 TECHNIQUE: CT imaging of the head was performed in the axial, sagittal, and coronal projections and bone algori thm in axial projection in the soft tissue algorithm. All CT scans at this location are performed using CT dose reduction for ALARA by means of automated e xposure control. CONTRAST: None. FINDINGS: Cerebral and Cerebellar Hemispheres: Persistent unchanged chronic ischemic lesions are seen in the po ns bilaterally. Volume loss is seen in the cerebellar hemispheres. Chronic lacunae are seen in the le ft thalamus and right internal capsule posterior limb. No evidence of mass or mass effect. No midlin e shift. No acute hemorrhage. No acute cortical infarction. No extra-axial fluid collection. Ventricles: Normal in size and configuration for age. Osseous Structures: No significant abnormality. Visualized Paranasal Sinuses: No significant abnormality. Additional Findings: None IMPRESSION: 1. No acute intracranial abnormality. 2. Chronic ischemic lesion involving the anya 3. Chronic lacunar infarcts left thalamus and right basal ganglion NOTE: Acute infarct may not be visible by noncontrast CT. Signer Name: Kendrick Boogie MD Signed: 09/11/2019 6:25 PM Workstation Name: [id number]
[2019-09-11 19:20] VITALS: BP 144/89
== END 2019-09-11 19:40 | disposition home or self-care (01) ==
LOC: ED 14:54
DX: M54.12 Radiculopathy, cervical region (principal); M13.88 Other specified arthritis, other site; I63.81 Other cerebral infarction due to occlusion or stenosis of small artery; K27.9 Peptic ulcer, site unspecified, unspecified as acute or chronic, without hemorrhage or perforation; F14.10 Cocaine abuse, uncomplicated; F17.200 Nicotine dependence, unspecified, uncomplicated; Z79.899 Other long term (current) drug therapy; Z21 Asymptomatic human immunodeficiency virus [HIV] infection status; Z88.8 Allergy status to other drugs, medicaments and biological substances
CPT/HCPCS: 36415; 70450; 72040; 80053; 80307; 81001; 85025

== ENCOUNTER 2019-10-01 15:41 | Emergency (ER) | payer MEDICAID ==
[2019-10-01 16:19] VITALS: BP 119/80
--- NOTE | 2019-10-01 17:03 | Emergency Department Report ---
ED Recheck HPI - General Chief Complaint: Pain General Stated Complaint: LEG AND HAND PAIN Time Seen by Provider: 10/01/19 17:01 Source: patient, EMS Mode of arrival: Wheelchair Limitations: Physical Limitation - History of Present Illness Initial Comments: Patient is a 54-year-old -[place] male who comes to the ER complaining of chronic pain. He is out of his Zanaflex. I am concerned given the covid viral outbreak that the patient is out of his home. He looks much older than stated age and is debilitated status post CVA. For this reason I have given him a prescription of his Zanaflex until such time he can see his primary care. - Related Data Previous Rx's Medication Instructions Recorded Last Taken Type tiZANidine [Zanaflex 4mg TAB] 0 mg PO HS #30 tablet 10/01/19 Unknown Rx Allergies Allergy/AdvReac Type Severity Reaction Status Date / Time aspirin AdvReac Hives Verified 07/29/19 15:16 diphenhydramine AdvReac Hives Verified 07/29/19 15:16 [From Benadryl] ibuprofen AdvReac Itching Verified 07/29/19 15:16 IVP dye AdvReac Anaphylaxis Uncoded 01/13/19 11:19 ED Review of Systems ROS: Stated complaint: LEG AND HAND PAIN Other details as noted in HPI Comment: All other systems reviewed and negative ED Past Medical Hx - Past Medical History Previous Medical History?: Yes Hx HIV: Yes Additional medical history: Peptic ulcer disease. "Cancer" - Surgical History Past Surgical History?: No - Family History Family history: no significant - Social History Smoking Status: Current Every Day Smoker Substance Use Type: Alcohol - Medications Home Medications: Home Medications Medication Instructions Recorded Confirmed Last Taken Type tiZANidine [Zanaflex 4mg TAB] 0 mg PO HS #30 tablet 10/01/19 Unknown Rx ED Physical Exam - General Limitations: Physical Limitation General appearance: alert - Head Head exam: Present: atraumatic, normocephalic - Eye Eye exam: Present: normal appearance - ENT ENT exam: Present: mucous membranes moist - Neck Neck exam: Present: normal inspection - Respiratory Respiratory exam: Present: normal lung sounds bilaterally. Absent: respiratory distress - Cardiovascular Cardiovascular Exam: Present: regular rate, normal rhythm. Absent: systolic murmur, diastolic murmur, rubs, gallop - GI/Abdominal GI/Abdominal exam: Present: soft, normal bowel sounds - Rectal Rectal exam: Present: deferred - Extremities Exam Extremities exam: Present: normal inspection - Back Exam Back exam: Present: normal inspection - Neurological Exam Neurological exam: Present: alert, oriented X3 - Psychiatric Psychiatric exam: Present: flat affect - Skin Skin exam: Present: warm, dry, intact, normal color, other (Patient has residual left-sided facial drooping and weakness from his CVA.). Absent: rash ED Course Vital Signs 10/01/19 16:16 Temperature 97.6 F Pulse Rate 87 Respiratory 18 Rate Blood Pressure 119/80 O2 Sat by Pulse 97 Oximetry ED Recheck MDM - Core Measures Measure Exclusions: not indicated - Differential Diagnosis Prescription Refill(s) - Medical Decision Making I am concerned that this debilitated patient is out of his home with the Covid virus outbreak. He has been given a prescription for his Zanaflex until such time he can see his primary care. He has no chest pain shortness of breath cough or fever. Vital Signs 10/01/19 16:16 Temperature 97.6 F Pulse Rate 87 Respiratory 18 Rate Blood Pressure 119/80 O2 Sat by Pulse 97 Oximetry Critical care attestation.: If time is entered above; I have spent that time in minutes in the direct care of this critically ill patient, excluding procedure time. ED Disposition Clinical Impression: Medication refill Disposition: -01 TO HOME OR SELFCARE Is pt being admited?: No Does the pt Need Aspirin: No Condition: Stable Prescriptions: tiZANidine [Zanaflex 4mg TAB] 0 mg PO HS #30 tablet Referrals: ALLYN JOHNSON MD [Staff Physician] - 3-5 Days Time of Disposition: 17:02
== END 2019-10-01 17:12 | disposition home or self-care (01) ==
LOC: ED 15:41
DX: M79.606 Pain in leg, unspecified (principal); M25.549 Pain in joints of unspecified hand; F17.200 Nicotine dependence, unspecified, uncomplicated; Z88.6 Allergy status to analgesic agent; Z91.041 Radiographic dye allergy status; Z79.82 Long term (current) use of aspirin; Z79.899 Other long term (current) drug therapy; Z21 Asymptomatic human immunodeficiency virus [HIV] infection status; Z76.0 Encounter for issue of repeat prescription
CPT/HCPCS: 99283

== ENCOUNTER 2020-02-04 11:54 | Emergency (ER) | payer MEDICAID ==
--- NOTE | 2020-02-04 13:38 | Event Note ---
ED Screening Note ED Screening Note: LIVES WITH HX CVA CO URINARY FREQUENCY AND WEAKNESS NO SOB NO CP NO FEVER NO CHILLS NO DM HTN CVA NO ACS HX COLON CA POOR INFORMANT PCP? NO CIG/ETOH This initial assessment/diagnostic orders/clinical plan/treatment(s) is/are subject to change based on patients health status, clinical progression and re- assessment by fellow clinical providers in the ED. Further treatment and workup at subsequent clinical providers discretion. Patient/guardian urged not to elope from the ED as their condition may be serious if not clinically assessed and managed. Initial orders include: LABS EKG UA
--- NOTE | 2020-02-04 14:27 | XRay Report ---
CHEST 2 VIEWS INDICATION: WEAKNESS. COMPARISON: None FINDINGS: Support devices: None. Heart: Within normal limits. Lungs/pleura: No acute air space or interstitial disease. No pneumothorax. Additional findings: None. IMPRESSION: No acute findings. Signer Name: Pierre Carr Jr, MD Signed: 02/04/2020 2:23 PM Workstation Name: [id number]
[2020-02-04 15:05] LABS: Hematocrit 46.8 % (35.5-45.6); Mean Corpuscular HGB Conc 32 % (32-34); Mean Corpuscular Volume 91 fl (84-94); Platelet Count 178 K/mm3 (140-440); Red Blood Count 5.12 M/mm3 (3.65-5.03); Red Cell Distribution Width 13.3 % (13.2-15.2)
[2020-02-04 15:36] LABS: Alanine Aminotransferase 49 units/L (7-56); Albumin 4.1 g/dL (3.9-5); BUN/Creatinine Ratio 17; Blood Urea Nitrogen 10 mg/dL (9-20); Calcium 8.8 mg/dL (8.4-10.2); Hemolysis Index 66
[2020-02-04 16:13] LABS: Bilirubin,Urine NEG (Negative); Blood,Urine NEG (Negative); Color,Urine Amber (Yellow); Mucus,Urine 3+ /HPF; Protein,Urine <15 mg/dL mg/dL (Negative)
--- NOTE | 2020-02-04 23:43 | Emergency Department Report ---
ED General Adult HPI - General Chief complaint: Abdominal Pain Stated complaint: EXCESSIVE URINATION Time Seen by Provider: 02/04/20 13:36 Source: patient Mode of arrival: Ambulatory Limitations: No Limitations - History of Present Illness Initial comments: Patient is 54-year-old male with history of CVA. Patient presented to the ER via EMS from home for chief complaint of generalized weakness for 1 month. Patient stated that he has urinary frequency. Patient denied any fever or chills. No chest pain, shortness of breath, cough, abdominal pain, nausea or vomiting. Patient kept asking if he can get a prescription for Percocet because the other pain medicine is not helping him. Patient does have chronic back pain. - Related Data Allergies Allergy/AdvReac Type Severity Reaction Status Date / Time aspirin AdvReac Hives Verified 07/29/19 15:16 diphenhydramine AdvReac Hives Verified 07/29/19 15:16 [From Benadryl] ibuprofen AdvReac Itching Verified 07/29/19 15:16 IVP dye AdvReac Anaphylaxis Uncoded 01/13/19 11:19 ED Review of Systems ROS: Stated complaint: EXCESSIVE URINATION Other details as noted in HPI Comment: All other systems reviewed and negative Constitutional: denies: chills, fever Respiratory: denies: cough, shortness of breath, SOB with exertion, SOB at rest, wheezing Cardiovascular: denies: chest pain, palpitations, dyspnea on exertion Gastrointestinal: denies: abdominal pain, nausea, vomiting, diarrhea, constipation, hematemesis, melena Genitourinary: urgency, frequency. denies: testicular pain, testicular mass Musculoskeletal: denies: back pain Neurological: denies: headache, weakness, numbness, paresthesias ED Past Medical Hx - Past Medical History Previous Medical History?: Yes Hx HIV: Yes Additional medical history: Peptic ulcer disease. "Cancer" - Surgical History Past Surgical History?: No - Social History Smoking Status: Never Smoker Substance Use Type: None ED Physical Exam - General Limitations: No Limitations General appearance: alert, in no apparent distress - Head Head exam: Present: atraumatic, normocephalic, normal inspection - Eye Eye exam: Present: normal appearance, PERRL - ENT ENT exam: Present: normal exam, normal orophraynx, mucous membranes moist - Neck Neck exam: Present: normal inspection, full ROM. Absent: tenderness, meningismus, lymphadenopathy, thyromegaly - Respiratory Respiratory exam: Present: normal lung sounds bilaterally - Cardiovascular Cardiovascular Exam: Present: regular rate, normal rhythm, normal heart sounds - GI/Abdominal GI/Abdominal exam: Present: soft, normal bowel sounds. Absent: distended, tenderness, guarding, rebound, rigid, organomegaly, mass, bruit, pulsatile mass, hernia - Extremities Exam Extremities exam: Present: normal inspection, full ROM, normal capillary refill. Absent: tenderness, pedal edema, calf tenderness - Back Exam Back exam: Present: normal inspection, full ROM. Absent: CVA tenderness (R), CVA tenderness (L) - Neurological Exam Neurological exam: Present: alert, oriented X3, CN II-XII intact, motor sensory deficit (Bilateral leg weakness however this is chronic.) - Psychiatric Psychiatric exam: Present: normal mood. Absent: suicidal ideation - Skin Skin exam: Present: warm, intact, normal color ED Course Vital Signs 02/04/20 02/04/20 13:03 13:36 Temperature 98.4 F 98.4 F Pulse Rate 70 70 Respiratory 16 18 Rate Blood Pressure 101/76 Blood Pressure 101/76 [Left] O2 Sat by Pulse 100 100 Oximetry ED Medical Decision Making - Lab Data Result diagrams: 02/04/20 14:23 02/04/20 14:23 - Medical Decision Making Patient is 63 years old male with history of diabetes, peripheral vascular disease, benign prostatic hypertrophy. 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 Patient presented to the ER complaining of right foot wound pain and also requesting medication refill. Patient stated that he is unable to see his primary care physician. Patient currently denying any fever, chills, cough, shortness of breath, chest pain, abdominal pain, nausea or vomiting. Patient is alert, oriented x3 and in no acute distress. Patient labs reviewed and is unremarkable. Patient condition is chronic and is been going on for more than a month now. I gave patient pain medication and advised him to follow-up with his primary care physician in the next 2 to 3 days and to return to the ER if he develop any new symptoms. Critical care attestation.: If time is entered above; I have spent that time in minutes in the direct care of this critically ill patient, excluding procedure time. ED Disposition Clinical Impression: Generalized weakness, Chronic pain Disposition: DC- TO HOME OR SELFCARE Is pt being admited?: No Condition: Stable Instructions: Weakness (ED), Chronic Pain (ED) Referrals: PRIMARY CARE,MD [Primary Care Provider] - 3-5 Days
[2020-02-05 01:05] LABS: Bilirubin,Urine NEG (Negative); Blood,Urine NEG (Negative); Color,Urine Yellow (Yellow); Mucus,Urine FEW /HPF; Protein,Urine <15 mg/dL mg/dL (Negative)
[2020-02-05 03:30] VITALS: BP 112/68
== END 2020-02-05 02:45 | disposition home or self-care (01) ==
LOC: ED 11:54
DX: R53.1 Weakness (principal); G89.29 Other chronic pain; Z21 Asymptomatic human immunodeficiency virus [HIV] infection status; Z88.6 Allergy status to analgesic agent; Z88.8 Allergy status to other drugs, medicaments and biological substances
CPT/HCPCS: 36415; 71046; 80053; 81001; 84484; 85027; 93005